=== PATIENT | female | born 1945 | race Caucasian/White ===

== ENCOUNTER 2019-12-12 01:57 | Emergency (ER) | payer MEDICARE ==
[~2019-12-12] VITALS: Ht 157.5 cm; Wt 65.7 kg
--- NOTE | 2019-12-12 02:20 | NUR ---
PATIENT AMBULATORY WITH STEADY GAIT TO RESTROOM, UA CUP PROVIDED.
[2019-12-12] MEDS ORDERED: ONDANSETRON ODT 4 MG ONE (02:48)
[2019-12-12] MEDS ORDERED: HYDROmorphone 1 MG/ML, 1ML INJ ONE (02:48)
--- NOTE | 2019-12-12 02:54 | NUR ---
THIS IS A 73 YO FEMALE COMING IN FOR RIGHT LEG PAIN FOR THE PAST WEEK. PATIENT WAS SEEN AT URGENT CARE WHEN PAIN STARTED AND WAS GIVEN CORTISONE SHOT FOR DX OF SCIATICA. WHEN PAIN RETURNED, PATIENT WENT TO [facility] IN ER IN [place] AND WAS GIVEN "SHOT OF MORPHINE AND SHOT OF A NAUSEA MEDICATION". PATIENT HAS HX OF CHRONIC LOW BACK PAIN, NO DX OF SCIATICA UNTIL LAST WEEK. PATIENT DESCRIBES PAIN ORIGINATING IN LOWER RIGHT BACK RADIATING DOWN LEG. CSM IN TACT, PEDAL PULSES STRONG, DENIES TENDER OR PAIN TO PALPATION. VSS, NAD NOTED, SPO2 AND BP MONITORING IN PLACE, FAMILY IN ROOM. CALL LIGHT IN REACH, DENIES NEEDS PATIENT MEDICATED PER EMAR, TOLERATED WELL. PATIENT TO ULTRASOUND AT THIS TIME
[2019-12-12 02:55] LABS: MICROSCOPIC AUTO
[2019-12-12 02:59] LABS: CULTURE INDICATED? NO
[2019-12-12 03:00] LABS: ALBUMIN 3.5 g/dL (3.4-5.0); ANION GAP 7 mmol/L (5-15); CALCIUM 8.4 mg/dL (8.5-10.1); CHLORIDE 109 mmol/L (98-107); CREATININE 1.36 mg/dL (0.55-1.02)
[2019-12-12] MEDS ORDERED: HYDROmorphone/PF 4 MG/ML, 1ML IM ONE (03:00)
[2019-12-12] MEDS ORDERED: ASPI-496 PO (03:00)
[2019-12-12] MEDS ORDERED: ONDANSETRON ODT 4 MG PO ONE (03:00)
[2019-12-12] MEDS ORDERED: PLEASE ENTER ALLERGIES MC SCH (03:00)
[2019-12-12] MEDS ORDERED: LAMO100T5 PO (03:00)
[2019-12-12] MEDS ORDERED: METF500T17 PO (03:00)
[2019-12-12] MEDS ORDERED: LOSA50TA14 PO (03:01)
[2019-12-12] MEDS ORDERED: SIMV20TA19 PO (03:01)
[2019-12-12] MEDS ORDERED: METO25TA35 PO (03:01)
--- NOTE | 2019-12-12 03:12 | NUR ---
REPORT GIVEN TO YOCASTA WHITE. PLAN OF CARE DISCUSSED. PATIENT IN ULTRASOUND AT THIS TIME
[2019-12-12 03:32] VITALS: BP 149/59
--- NOTE | 2019-12-12 03:33 | NUR ---
PT RESTING ON GURNEY EYES CLOSED RESP EVEN AND UNLABORED. LIGHTS DIMMED FOR COMFORT CALL LIGHT IN REACH.
--- NOTE | 2019-12-12 03:51 | NUR ---
ALL RESULTS BACK AT THIS TIME CHART UP FOR RECHECK
== END 2019-12-12 04:58 | disposition home or self-care (01) ==
LOC: ED 04:44
DX: M54.41 Lumbago with sciatica, right side (principal); M79.604 Pain in right leg; R94.4 Abnormal results of kidney function studies; I11.9 Hypertensive heart disease without heart failure; E11.9 Type 2 diabetes mellitus without complications
CPT/HCPCS: 36415; 80048; 81001; 82040; 93971; 96372; 99284; J1170; Q0162